=== PATIENT | male | born 2005 | race Caucasian/White ===

== ENCOUNTER 2025-01-03 15:24 | Emergency (ER) | payer OTHER, SELFPAY ==
[2025-01-03 15:25] VITALS: BP 139/82; PULSE 91; RESP 17; TEMP 36.6; O2SAT 98; BMI 52.4
--- NOTE | 2025-01-03 16:16 | CT_ITS ---
EXAM: BRAIN/HEAD WITHOUT CONTRAST CLINICAL HISTORY: 19 y/o M with INJURY/PAIN. COMPARISON: None. TECHNIQUE: Routine CT imaging of the head without IV contrast. Additional multiplanar reformats were obtained. Dose reduction techniques were used including intermediate exposure control (AEC),iterative reconstruction technique, and/or mA and/or KV dose adjustments based on patient's size. FINDINGS: No acute intracranial hemorrhage or herniation. The oneil-white matter interfaces are maintained. The ventricles and subarachnoid spaces are normal for patient age. The basal cisterns are patent. Inspissated secretions within the bilateral maxillary sinuses ([id number]) ethmoid air cells, sphenoid and minimally within the frontal sinuses. The orbits are unremarkable. No acute calvarial fracture or scalp hematoma. CT/Brain/Head without Contrast IMPRESSION: 1. No acute intracranial finding. 2. Findings compatible with sinusitis. Clinical correlation recommended. Reading Location: [id number]
--- NOTE | 2025-01-03 16:20 | RAD_ITS ---
PROCEDURE: WRIST MIN 3 VIEWS N/A REASON FOR EXAM: INJURY/PAIN TECHNIQUE: 3 view(s) of the left wrist COMPARISON: Same day forearm radiographs. FINDINGS: Bones: Tiny osseous fragment along the dorsal triquetral bone. No aggressive osseous lesions. Joints: Normal alignment. Joint spaces preserved. No arthropathic features. Soft tissues: Soft tissue swelling. RAD/Wrist min 3 Views IMPRESSION: Probable dorsal avulsion fracture of the left triquetrum. Correlation with poi nt tenderness recommended. Reading Location: [id number]
--- NOTE | 2025-01-03 16:20 | RAD_ITS ---
PROCEDURE: FOREARM 2 VIEWS N/A REASON FOR EXAM: INJURY/PAIN TECHNIQUE: Two views of the left forearm COMPARISON: None RAD/Forearm 2 Views IMPRESSION: Acute triquetral fracture with mild displacement. No dislocations. Mild assoc iated soft tissue swelling. Mild radiocarpal joint space narrowing. No radiographic foreign body. Reading Location: [id number]
[2025-01-03] MEDS: Ibuprofen 600 MG Tablet PO (16:21)
[2025-01-03] MEDS: Ondansetron ODT 4 MG Tablet PO (16:22)
--- NOTE | 2025-01-03 16:38 | EDS_ITS ---
HPI History of Present Illness Chief Complaint: Upper Extremity Injury Informant: patient Narrative Narrative: Patient is a 19-year-old male denies any significant past medical history, [id number]. Presenting with left wrist and forearm pain. Patient st ates he was drinking heavily 2 nights ago (Saturday). Went to bed early Saturday morning. He notes that he was vomiting a lot Saturday and has not had much to eat since. He has had pain and swelling of his left wrist and distal forearm. Also notes that he hit his head near the left tenriism and has some mild pain of his left knee. Does not remember falling or how he got these injuries. States he does not really remember what happened on Saturday night. Admits to using alcohol denies any other substance use. No other complaints or concerns at this time. Is not taking anything for pain prior to arrival [facility] Medical History no medical history Home Medications ?Medication ?Instructions ?Recorded ?Last Taken ?Type hydrocodone-acetaminophen 5-325mg 1 tab PO Q8H PRN Celena n 3 days #10 01/03/25 Unknown Rx 5mg-325mg TABLETS ibuprofen 600 mg tablet 600 mg PO Q6H PRN PRN pain # 20 01/03/25 Unknown Rx TABLETS ondansetron 4 mg disintegrating 4 mg PO Q8H PRN PRN Na usea #10 tabs 01/03/25 Unknown Rx tablet Allergy/AdvReac Type Severity Reaction Status Date / Time No Known Allergies Allergy Verified 01/03/25 15:27 Surgical History no surgical history Social History Smoking Status: Current every day smoker tobacco type: cigarettes ROS ROS ED Constitutional Constitutional ED: Denies chills or fever(s) Eyes Eyes: Denies blurry vision or change in vision Gastrointestinal Gastrointestinal: Reports nausea and vomiting; Denies abdominal pain Musculoskeletal Musculoskeletal: Reports other Details: left wrist pain Integumentary Reports Abrasions Neurologic Neurologic: Reports headache(s); Denies paresthesias or weakness Hematologic/Lymphatic Hematologic/Lymphatic: Denies easy bleeding or easy bruising EXAM Physical Exam Const Vital Signs: 01/03/25 15:25 Temperature 97.9 F Temperature Source Oral Pulse Rate 91 Respiratory Rate 17 Blood Pressure 139/82 H Blood Pressure Mean 101 Pulse Ox 98 Oxygen Delivery Method Room Air Positive well nourished and well developed General Appearance ED: well developed and NAD HEENT Reports moist mucous membranes HEENT Narrative: Ecchymosis noted to the left temporal area. No cephalhematoma appreciated. normocephalic Eyes PERRL and EOMs intact bilaterally Neck full ROM Neck Narrative: No midline tenderness Chest Wall inspection of chest normal and palpation of chest normal Resp normal respiratory effort and clear to auscultation bilaterally Cardio regular rate and regular rhythm Cardio Narrative: 2+ radial pulses. Brisk capillary refill. Extremity Extremity Narrative: Swelling with decreased range of motion and pain of the left wrist. Pain most pronounced over the lateral aspect of the wrist. Compartments are soft of the forearm and wrist. No pain with palpation or range of motion of the left elbow. Patient reports mild pain of his left lateral knee but is normal range of motion of the knee. No pinpoint point tenderness. No effusion appreciated. No fibular head tenderness. No other acute bony tenderness or deformity appreciated Neuro oriented x3, CN's II-XII intact bilaterally, moves all extremities, no focal motor deficits and no sensory deficits noted Sensorium / Orientation: alert Psych mental status grossly normal Skin Skin Narrative: Healing abrasion over the dorsal aspect of the left distal forearm. Healing ecchymosis over the left temporal area. MDM MDM MDM Narrative Medical decision making narrative: Patient evaluated for left wrist pain and swelling. Patient is not sure how he injured his wrist but woke up with it after night of drinking. He did have subsequent nausea and vomiting. Due to unknown mechanism of injury with vomiting and signs of head injury will obtain CT of the brain to rule intracranial hemorrhage. Possible vomiting could be from excessive drinking as well of course. X-ray of the forearm and wrist is also obtained for concern of fracture or dislocation. He is neurovascularly intact and has good distal pulses and capillary refill. X-ray reviewed by myself as well as radiology does show minimally displaced triquetrum fracture of the left wrist. This is consistent with his area of pain. Patient is placed in an AP splint. Case is discussed with Dr. Delgado, orthopedics on-call. He recommends splint and outpatient follow-up in office. Patient does have improvement after receiving Motrin in the ER. Is given a prescription for Motrin 600, Zofran and then Dukedom for breakthrough pain. He is counseled on splint care and the point of icing. Given return precautions. Discharged home in stable condition. Radiography Diagnostic Testing: Diagnostic Data Brain CT 01/03/25 16:16 IMPRESSION: 1. No acute intracranial finding. 2. Findings compatible with sinusitis. Clinical correlation recommended. Reading Location: [facility] Forearm X-Ray 01/03/25 16:20 IMPRESSION: Acute triquetral fracture with mild displacement. No dislocations. Mild associated soft tissue swelling. Mild radiocarpal joint space narrowing. No radiographic foreign body. Reading Location: [facility] Wrist X-Ray 01/03/25 16:20 IMPRESSION: Probable dorsal avulsion fracture of the left triquetrum. Correlation with point tenderness recommended. Reading Location: [facility] Discharge Plan Triage Chief Complaint: Upper Extremity Injury ED Provider: Valarie Sosa Dx/Rx/DC Orders Clinical Impression: Fracture of triquetral bone of left wrist Instructions: ED Splint Care, Fiberglass, ED Fracture, Wrist, General Prescriptions: New ibuprofen 600 mg tablet 600 mg PO Q6H PRN PRN (Reason: pain) Qty: 20 0RF hydrocodone-acetaminophen 5-325 mg tablet 1 tab PO Q8H PRN (Reason: Pain) 3 Days Qty: 10 0RF ondansetron 4 mg tablet,disintegrating 4 mg PO Q8H PRN PRN (Reason: Nausea) Qty: 10 0RF Primary Care Provider: Care Physician,No Primary Referrals: Nate Delgado MD [Med Staff - Active Staff] - Care Physician,No Primary [Primary Care Provider] - Activity Restrictions/Additional Instructions: Wear splint until cleared by orthopedics. Alternate ibuprofen and Tylenol for pain. If pain becomes severe you may take the prescribed Dukedom (hydrocodone/acetaminophen) for breakthrough pain. Ice through your splint. Call orthopedics tomorrow to arrange follow-up this week. Print Language: Peruvian Disposition Disposition: Home, Self Care
[2025-01-03 18:53] VITALS: BP 123/76; PULSE 65; RESP 16; TEMP 36.9; O2SAT 94
== END 2025-01-03 19:07 | disposition home or self-care (01) ==
PROVIDERS: Emergency Provider Emergency Medicine; Visit Provider Emergency Medicine
DX: S62.112A Displaced fracture of triquetrum [cuneiform] bone, left wrist, initial encounter for closed fracture (principal); X58.XXXA Exposure to other specified factors, initial encounter; F17.210 Nicotine dependence, cigarettes, uncomplicated
CPT/HCPCS: 29125; 70450; 73090; 73110; 99283